=== PATIENT | female | born 1945 | race Caucasian/White ===

== ENCOUNTER 2019-08-26 16:23 | Emergency (ER) | payer MEDICARE ==
--- NOTE | 2019-08-26 17:48 | Emergency Department Record ---
History of Present Illness - General Chief Complaint: General Stated Complaint: INLFUSION Time Seen by Provider: 08/26/19 17:35 Source: Patient Mode of Arrival: Ambulatory Limitations: No limitations - History of Present Illness Initial comments: 73 yo female presents to ED for evaluation of low hemoglobin, patient was contacted by her oncologist Dr. Donis through [facility] to come to the ED for transfusion. 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 Patient does report previous need for transfusion in September of this year, reports that her Hgb otherwise has remained stable. Patient denies fevers, chills, or other symptoms. -: Days(s) Consistency: Constant Improves with: None Worsens with: None Associated Symptoms: Denies other symptoms - Kristyn Coma Scale Eye Response: (4) Open spontaneously Motor Response: (6) Obeys commands Verbal Response: (5) Oriented Kristyn Total: 15 - Related Data Allergies Allergy/AdvReac Type Severity Reaction Status Date / Time albuterol Allergy TACHYCARDIA Unverified 07/03/19 13:52 amoxicillin trihydrate Allergy Unverified 07/03/19 13:52 [From Augmentin] potassium clavulanate Allergy Unverified 07/03/19 13:52 [From Augmentin] Review of Systems Constitutional: Denies: Chills, Fever, Malaise, Night sweats Eyes: Denies: Eye discharge, Eye pain ENT: Denies: Congestion, Ear pain, Epistaxis Respiratory: Denies: Cough, Dyspnea Cardiovascular: Denies: Chest pain, Dyspnea on exertion Endocrine: Denies: Fatigue, Heat or cold intolerance Gastrointestinal: Denies: Abdominal pain, Nausea, Vomiting Genitourinary: Denies: Incontinence, Retention Musculoskeletal: Denies: Arthralgia, Back pain Skin: Denies: Bruising, Change in color Neurological: Denies: Abnormal gait, Confusion, Tingling, Tremors Psychiatric: Denies: Anxiety Hematological/Lymphatic: Denies: Anemia, Blood Clots Past Medical History - SOCIAL HISTORY Smoking Status: Never smoker - RESPIRATORY Hx Respiratory Disorders: No Comment:: Seasonal allergies - CARDIOVASCULAR Hx Cardio Disorders: No Hx Hypertension: Yes Hx Irregular Heartbeat: Yes (not since ablation) - NEURO Hx Neuro Disorders: Yes Hx Dizziness: Yes (vertigo) Hx Headaches: Yes - GI Hx GI Disorders: No - Hx Genitourinary Disorders: No - ENDOCRINE Hx Endocrine Disorders: Yes Hx Thyroid Disease: Yes - MUSCULOSKELETAL Hx Musculoskeletal Disorders: Yes Hx Arthritis: Yes Hx Fibromyalgia: Yes - PSYCH Hx Psych Problems: Yes Hx Anxiety: Yes Hx Depression: Yes - HEMATOLOGY/ONCOLOGY Hx Hematology/Oncology Disorders: No Physical Exam - General General Appearance: Alert, Oriented x3, Cooperative, No acute distress Limitations: No limitations - Head Head exam: Atraumatic, Normocephalic, Normal inspection Head exam detail: negative: Abrasion, Contusion, Goss's sign, General tenderness, Hematoma, Laceration - Eye Eye exam: Normal appearance. negative: Conjunctival injection, Periorbital swelling, Periorbital tenderness, Scleral icterus - ENT Ear exam: negative: Auricular hematoma, Auricular trauma Nasal Exam: negative: Active bleeding, Discharge, Dried blood, Foreign body Mouth exam: negative: Drooling, Laceration, Muffled voice, Tongue elevation - Neck Neck exam: Normal inspection. negative: Meningismus, Tenderness - Respiratory Respiratory exam: Normal lung sounds bilaterally. negative: Respiratory distress, Rhonchi, Stridor, Wheezes - Cardiovascular Cardiovascular Exam: Regular rate, Normal rhythm, Normal heart sounds - GI/Abdominal GI/Abdominal exam: Soft, Organomegaly (Spleen). negative: Pulsatile mass, Rebound, Rigid, Tenderness - Rectal Rectal exam: Deferred - exam: Deferred - Extremities Extremities exam: Normal inspection. negative: Tenderness - Back Back exam: Denies: CVA tenderness (R), CVA tenderness (L) - Neurological Neurological exam: Alert, Normal gait, Oriented X3 - Psychiatric Psychiatric exam: Normal affect, Normal mood - Skin Skin exam: Normal color. negative: Abrasion Type of lesion: negative: abrasion Course - Reevaluation(s) Reevaluation #1: 08/26/19 20:29 Patient blood has been received from blood bank and is currently infusing. Patient is resting comfortably at this time, all questions were answered. Reevaluation #2: 08/26/19 21:25 Patient's blood has completed infusion, patient denies symptoms following completion. Patient appears stable for discharge at this time. Disposition Disposition: Discharge Clinical Impression: Anemia Qualifiers: Anemia type: bone marrow failure Bone marrow failure anemia type: unspecified bone marrow failure Qualified Code(s): D61.9 - Aplastic anemia, unspecified Disposition: Home, Self-Care Condition: (2) Stable Instructions: Anemia (ED) Additional Instructions: Return to ED if your symptoms worsen or if you have any concerns. Repeat hemoglobin tomorrow with results sent to your Oncologist (Zohra). Follow-up with your oncologist in 3-5 days as directed. Forms: Patient Portal Access Time of Disposition: 21:26 Quality - Quality Measures Quality Measures: N/A - Blood Pressure Screening Does Patient Have Any of the Following: No Blood Pressure Classification: Pre-Hypertensive BP Reading Systolic Measurement: 182 Diastolic Measurement: 89 Screening for High Blood Pressure: < Pre-Hypertensive BP, F/U Documented > [[id number]] Pre-Hypertensive Follow-up Interventions: Referral to alternative/primary care provider.
[2019-08-26 18:37] LABS: ABO GROUP O; ANTIBODY SCREEN NEGATIVE (NEGATIVE); RH TYPE POSITIVE
[2019-08-26 19:53] LABS: IMMED. SPIN CROSSMATCH COMPATIBLE
== END 2019-08-26 21:32 | disposition home or self-care (01) ==
LOC: ER 16:23
DX: D46.9 Myelodysplastic syndrome, unspecified (principal); D61.1 Drug-induced aplastic anemia; D63.8 Anemia in other chronic diseases classified elsewhere; T45.1X5A Adverse effect of antineoplastic and immunosuppressive drugs, initial encounter; I10 Essential (primary) hypertension; R42 Dizziness and giddiness; R53.1 Weakness
CPT/HCPCS: 36430; 84550; 85027; 86850; 86900; 86901; 99284